=== PATIENT | female | born 1985 | race Caucasian/White ===

== ENCOUNTER 2017-06-07 21:53 | Emergency (ER) | payer BC | END 2017-06-07 23:28 | disposition home or self-care (01) | LOC: D.ER 21:53 | DX: N75.0 Cyst of Bartholin's gland (principal) ==

== ENCOUNTER 2017-09-08 20:44 | Emergency (ER) | payer MEDICAID | END 2017-09-08 23:09 | disposition home or self-care (01) | LOC: D.ER 20:44 | DX: N75.0 Cyst of Bartholin's gland (principal) ==